=== PATIENT | female | born 1995 | race Caucasian/White ===

== ENCOUNTER 2023-04-10 12:20 | Emergency (ER) | payer OTHER ==
[~2023-04-10] VITALS: Ht 162.6 cm; Wt 61.2 kg
--- NOTE | 2023-04-10 12:38 | NUR ---
Note april in EDM - 04/10/23 at 1241 by GUERLINE Juan Carlosent ambulated to room #5B, informed of plan of care, urine has been collected and sent to lab. ER provider at bedside talking with patient. No s/s of any distress noted at this time.
--- NOTE | 2023-04-10 12:41 | NUR ---
Patient ambulated to room #5B, informed of plan of care, urine has been collected and sent to lab. ER provider at bedside talking with patient. No s/s of any distress noted at this time.
[2023-04-10 12:45] LABS: *BILIRUBIN,URIN NEGATIVE (NEGATIVE); *BLOOD, URINE TRACE (NEGATIVE); *CLARITY,URINE CLEAR (CLEAR); *COLOR,URINE YELLOW (YELLOW); *KETONES,URINE NEGATIVE (NEGATIVE); *UROBILINOGEN,URINE 0.2 E.U./dl (NORMAL); LEUKOCYTE ESTERASE ,URINE 1+ (NEGATIVE); NITRITE, URINE NEGATIVE (NEGATIVE); PH,URINE 7.5 (5.0-8.0); UGLUCOSE NEGATIVE (NEGATIVE)
[2023-04-10] MEDS ORDERED: IV NORMAL SALINE 1000 ML BAG IV ONE (12:45)
[2023-04-10] MEDS ORDERED: CEFTRIAXONE 1 G in IV DEXTROSE 5% 50 ML IV ONE (12:45)
[2023-04-10] MEDS ORDERED: KETOROLAC TROMETHAMINE 15 MG INJ IVP ONE (12:45)
--- NOTE | 2023-04-10 12:55 | NUR ---
Patient to room #5, assisted into gown, informed of plan of care at this time. ER provider was at bedside for exam. #20g established in right ac area, blood collected and sent to lab. Patient states that she feels nauseated s/p iv start.
[2023-04-10 13:00] LABS: HEMATOCRIT 41.1 % (31.2-41.9); MEAN CORPUSCULAR HEMOGLOBIN 30.9 uug (24.7-32.8); MEAN CORPUSCULAR VOLUME 91.9 fL (75.5-95.3); PLATELET COUNT (AUTO) 288 K/uL (179-408)
[2023-04-10 13:07] LABS: *URINE HCG, QUAL NEGATIVE (NEGATIVE)
[2023-04-10 13:13] LABS: CREATININE 0.7 mg/dL (0.6-1.3); POTASSIUM 3.9 mmol/L (3.5-5.1)
[2023-04-10 13:18] LABS: BILIRUBIN,TOTAL 0.5 mg/dL (0.2-1.0); TOTAL PROTEIN, SERUM 8.1 g/dL (6.4-8.2)
[2023-04-10] MEDS ORDERED: IBUP-1955 PO (13:22)
[2023-04-10] MEDS ORDERED: CEPH500C2 PO (13:22)
[2023-04-10] MEDS ORDERED: KETOROLAC TROMETHAMINE 15 MG INJ ONE (13:32)
[2023-04-10] MEDS ORDERED: CEFTRIAXONE /D5W 50ML IVPB **ER PYXIS IV ONE (13:32)
--- NOTE | 2023-04-10 14:10 | NUR ---
Patient states feels better, IVF continues to infuse, will continue to monitor.
[2023-04-10 14:15] LABS: BACTERIA,URINE FEW /HPF (NONE SEEN); RBC,URINE 0-3 /HPF (0-3); WBC,URINE 0-3 /HPF (0-3)
--- NOTE | 2023-04-10 14:31 | NUR ---
HL removed, ACI given, remains stable for discharge.
[2023-04-10 14:32] VITALS: BP 134/78; O2SAT 98
== END 2023-04-10 14:32 | disposition home or self-care (01) ==
LOC: ER 12:20
DX: N39.0 Urinary tract infection, site not specified (principal); Z79.1 Long term (current) use of non-steroidal anti-inflammatories (NSAID); Z79.899 Other long term (current) drug therapy
CPT/HCPCS: 99284; 96365; 96361; 96375; 80053; 81001; 84703; 83690; 85025; 36415; J0696; J1885; J7040; A4663

== ENCOUNTER 2024-05-26 18:41 | Emergency (ER) | payer OTHER ==
[~2024-05-26] VITALS: Ht 162.6 cm; Wt 61.2 kg
[~2024-05-26 18:41] MED LIST: CEPH500C2 PO; IBUP-1955 PO
[2024-05-26 19:41] LABS: BASOPHILS # (AUTO) 0.1 K/UL (0.0-0.2); BASOPHILS % (AUTO) 0.5 % (0.0-2.0); EOSINOPHILS # (AUTO) 0.2 K/uL (0.0-0.7); EOSINOPHILS % (AUTO) 1.6 % (0.0-7.0); HEMATOCRIT 43.8 % (31.2-41.9); HEMOGLOBIN 14.2 g/dL (10.9-14.3); LYMPHOCYTES # (AUTO) 1.5 K/uL (0.8-4.8); LYMPHOCYTES % (AUTO) 12.3 % (20.5-51.5); MEAN CORPUSCULAR HEMOGLOBIN 29.9 uug (24.7-32.8); MEAN CORPUSCULAR HGB CONC 32 g/dL (32.3-35.6); MEAN CORPUSCULAR VOLUME 92.4 fL (75.5-95.3); MONOCYTES # (AUTO) 1.1 K/uL (0.1-1.30); MONOCYTES % (AUTO) 9.4 % (0.0-11.0); NEUTROPHILS # (AUTO) 9.1 K/uL (1.8-8.9); NEUTROPHILS % (AUTO) 76.2 % (38.5-71.5); PLATELET COUNT (AUTO) 239 K/uL (179-408); RED BLOOD CELL COUNT(AUTO) 4.74 MIL/uL (3.63-4.92); WHITE BLOOD COUNT (AUTO) 11.9 K/uL (3.8-11.8)
[2024-05-26 19:43] LABS: *BILIRUBIN,URIN NEGATIVE (NEGATIVE); *BLOOD, URINE NEGATIVE (NEGATIVE); *CLARITY,URINE CLEAR (CLEAR); *COLOR,URINE YELLOW (YELLOW); *KETONES,URINE NEGATIVE (NEGATIVE); *PROTEIN,URINE NEGATIVE (NEGATIVE); *UROBILINOGEN,URINE 0.2 E.U./dl (NORMAL); LEUKOCYTE ESTERASE ,URINE NEGATIVE (NEGATIVE); NITRITE, URINE NEGATIVE (NEGATIVE); PH,URINE 6.5 (5.0-8.0); UGLUCOSE NEGATIVE (NEGATIVE)
[2024-05-26 19:56] LABS: DIFFERENTIAL COMMENT 1
[2024-05-26 19:57] LABS: *URINE HCG, QUAL NEGATIVE (NEGATIVE)
[2024-05-26] MEDS ORDERED: ONDANSETRON 4 MG/2 ML VIAL ONE (20:00)
[2024-05-26] MEDS ORDERED: LOPERAMIDE HCL 2 MG CAPSULE ONE (20:01)
[2024-05-26] MEDS ORDERED: FAMOTIDINE. 20 MG/2 ML VIAL IV ONE (20:01)
[2024-05-26 20:04] LABS: ALBUMIN 3.7 g/dL (3.4-5.0); BILIRUBIN,DIRECT 0.1 mg/dL (0.0-0.2); BILIRUBIN,TOTAL 0.3 mg/dL (0.2-1.0); CALCIUM 9.1 mg/dL (8.5-10.1); CREATININE 0.6 mg/dL (0.6-1.3); POTASSIUM 3.9 mmol/L (3.5-5.1); TOTAL PROTEIN, SERUM 7.2 g/dL (6.4-8.2)
[2024-05-26] MEDS: ONDANSETRON 4 MG/2 ML VIAL IV ONE (20:10)
[2024-05-26] MEDS: FAMOTIDINE. 20 MG/2 ML VIAL IV ONE (20:10)
[2024-05-26] MEDS: LOPERAMIDE HCL 2 MG CAPSULE PO ONE (20:10)
[2024-05-26] MEDS: IV NORMAL SALINE 1000 ML BAG IV ONE (20:19)
[2024-05-26] MEDS ORDERED: ONDA4TAB11 PO (20:40)
[2024-05-26 21:38] VITALS: BP 112/70; TEMP 98.9; O2SAT 99
== END 2024-05-26 21:30 | disposition home or self-care (01) ==
LOC: ER 18:42
DX: K52.89 Other specified noninfective gastroenteritis and colitis (principal); E86.0 Dehydration; R10.12 Left upper quadrant pain; R11.0 Nausea; R19.7 Diarrhea, unspecified; R10.2 Pelvic and perineal pain; G43.909 Migraine, unspecified, not intractable, without status migrainosus; I48.91 Unspecified atrial fibrillation; F32.A Depression, unspecified; Z79.1 Long term (current) use of non-steroidal anti-inflammatories (NSAID); Z98.890 Other specified postprocedural states; Z79.899 Other long term (current) drug therapy; Z88.5 Allergy status to narcotic agent; Z88.8 Allergy status to other drugs, medicaments and biological substances
CPT/HCPCS: 99284; 96374; 96361; 96375; 80076; 80048; 81003; 84703; 83690; 85025; 36415; J3490; J2405; J7040; A4606; A4663